=== PATIENT | female | born 1965 | race Caucasian/White ===

== ENCOUNTER 2019-02-08 14:41 | Emergency (ER) | payer OTHER ==
[~2019-02-08] VITALS: Ht 188 cm; Wt 77.1 kg
[2019-02-08] MEDS ORDERED: FETZIMA80 MG PO (15:28)
[2019-02-08] MEDS ORDERED: ZALEPLON 10 MG10 M1 PO (15:29)
[2019-02-08] MEDS ORDERED: SYNTHROID50 MCG PO (15:29)
[2019-02-08] MEDS ORDERED: DILAUDID2 MG PO (15:29)
[2019-02-08] MEDS ORDERED: FLEXERIL PO (15:30)
[2019-02-08] MEDS ORDERED: NORCO 10-325 T1 EACH PO (15:31)
[2019-02-08] MEDS ORDERED: SEROQUEL 25 MG25 MG PO (15:32)
[2019-02-08] MEDS ORDERED: REMERON 30 MG T30 MG PO (15:32)
[2019-02-08] MEDS ORDERED: FENOFIBRATE145 M1 PO (15:33)
[2019-02-08] MEDS ORDERED: ZYRTEC 10 MG TA10 MG PO (15:33)
[2019-02-08] MEDS ORDERED: SINGULAIR 10 MG10 M1 PO (15:34)
[2019-02-08] MEDS ORDERED: TRANSDERM-SCOP1 EACH TRANSDERM (15:34)
[2019-02-08] MEDS ORDERED: SENNA-DOCUSATE1 EAC1 PO (15:35)
[2019-02-08] MEDS ORDERED: QUETIAPINE FUM400 MG PO (15:36)
[2019-02-08] MEDS ORDERED: NARCAN4 MG NASAL (15:36)
[2019-02-08] MEDS ORDERED: VITAMIN D2000 UNIT PO (15:37)
[2019-02-08] MEDS ORDERED: VALACYCLOVIR HCL1 GM PO (15:38)
[2019-02-08] MEDS ORDERED: OMEPRAZOLE40 MG PO (15:39)
[2019-02-08] MEDS ORDERED: OXTELLAR XR300 MG PO (15:39)
[2019-02-08] MEDS ORDERED: VENTOLIN HFA 1818 GM INH (15:40)
[2019-02-08 16:12] LABS: BASOPHILS 0.8 % (0.0-2.0); EOSINOPHILS 0.4 % (0.0-3.0); HEMATOCRIT 35.3 % (37.0-47.0); HEMOGLOBIN 11.9 gm/dL (12.0-15.0); LYMPHOCYTES 19.7 % (24.0-44.0); MCH 29.5 pg (26.0-34.0); MCHC 33.7 g/dL (28.0-37.0); MCV 87.6 fL (80.0-100.0); PLATELET COUNT 335 thou/uL (150-400); POLYS 70.1 % (36.0-66.0); RBC 4.03 mil/uL (4.20-5.00); RDW 13.8 % (10.5-14.5)
[2019-02-08 16:21] LABS: ANION GAP 12 mmol/L (7-16); BUN 12 mg/dL (7-18); CALCIUM 9.5 mg/dL (8.5-10.1); CHLORIDE 106 mmol/L (98-107); CO2 22 mmol/L (21-32); GLUCOSE 115 mg/dL (74-106); POTASSIUM 3.5 mmol/L (3.5-5.1); SODIUM 140 mmol/L (136-145)
[2019-02-08 16:28] LABS: ALBUMIN 3.5 g/dL (3.4-5.0); SALICYLATE < 2.8 mg/dL (2.8-20.0); SGOT 20 U/L (15-37); SGPT 23 U/L (30-65); TOTAL BILIRUBIN 0.2 mg/dL (<0.1-1.0); TOTAL PROTEIN 7.2 g/dL (6.4-8.2)
[2019-02-08 16:46] LABS: URINE BILIRUBIN NEGATIVE (Negative); URINE BLOOD TRACE (Negative); URINE COLOR YELLOW; URINE GLUCOSE-RANDOM* NEGATIVE (Negative); URINE KETONES NEGATIVE (Negative); URINE LEUKOCYTES 2+ (Negative); URINE NITRITE POSITIVE (Negative); URINE PROTEIN (DIPSTICK) NEGATIVE (Negative); URINE SPECIFIC GRAVITY 1.015 (1.005-1.035); URINE UROBILINOGEN 0.2 E.U./dl (0.2-1.0)
[2019-02-08 16:48] LABS: URINE CLARITY CLOUDY
[2019-02-08 17:07] LABS: SQUAMOUS >10 Many /LPF (0-3)
[2019-02-08 17:09] LABS: AMP/METHAMP Negative (Negative); BACTERIA >30 Many /HPF (None Seen); BARBITURATES Negative (Negative); BENZODIAZEPINES Negative (Negative); CASTS None Seen /LPF (None Seen); COCAINE Negative (Negative); CRYSTALS None Seen /LPF (None Seen); METHADONE Negative (Negative); OPIATES Negative (Negative); PCP Negative (Negative); URINE RBC 0-2 Rare /HPF (0-2); URINE WBC 6-15 Few /HPF (0-5)
[2019-02-08] MEDS ORDERED: HYDROCODONE-AP1 EAC6 PO (19:58)
[2019-02-08 20:12] VITALS: BP 149/96
== END 2019-02-08 20:22 | disposition home or self-care (01) ==
LOC: ER 14:41
PROVIDERS: Physician Assistant
DX: G89.29 Other chronic pain (principal); F32.9 Major depressive disorder, single episode, unspecified; N39.0 Urinary tract infection, site not specified; E03.9 Hypothyroidism, unspecified; G47.00 Insomnia, unspecified; F41.9 Anxiety disorder, unspecified; Z85.830 Personal history of malignant neoplasm of bone; Z96.641 Presence of right artificial hip joint; Z88.0 Allergy status to penicillin; Z88.1 Allergy status to other antibiotic agents; Z88.8 Allergy status to other drugs, medicaments and biological substances; Z79.899 Other long term (current) drug therapy

== ENCOUNTER 2019-06-06 11:00 | Emergency (ER) | payer OTHER ==
[~2019-06-06] VITALS: Ht 185.4 cm; Wt 61.2 kg
[2019-06-06 11:00] VITALS: BP 144/93
[~2019-06-06 11:00] MED LIST: DILAUDID2 MG PO; FENOFIBRATE145 M1 PO; FETZIMA80 MG PO; FLEXERIL PO; HYDROCODONE-AP1 EAC6 PO; NARCAN4 MG NASAL; NORCO 10-325 T1 EACH PO; OMEPRAZOLE40 MG PO; OXTELLAR XR300 MG PO; QUETIAPINE FUM400 MG PO; REMERON 30 MG T30 MG PO; SENNA-DOCUSATE1 EAC1 PO; SEROQUEL 25 MG25 MG PO; SINGULAIR 10 MG10 M1 PO; SYNTHROID50 MCG PO; TRANSDERM-SCOP1 EACH TRANSDERM; VALACYCLOVIR HCL1 GM PO; VENTOLIN HFA 1818 GM INH; VITAMIN D2000 UNIT PO; ZALEPLON 10 MG10 M1 PO; ZYRTEC 10 MG TA10 MG PO
[2019-06-06] MEDS ORDERED: IBUPROFEN 600600 M1 PO (11:58)
== END 2019-06-06 12:05 | disposition home or self-care (01) ==
LOC: ER 11:00
DX: S60.212A Contusion of left wrist, initial encounter (principal); F41.9 Anxiety disorder, unspecified; F32.9 Major depressive disorder, single episode, unspecified; G47.00 Insomnia, unspecified; Z85.830 Personal history of malignant neoplasm of bone; Z96.641 Presence of right artificial hip joint; Z88.2 Allergy status to sulfonamides; Z88.0 Allergy status to penicillin; Z88.8 Allergy status to other drugs, medicaments and biological substances; W18.39XA Other fall on same level, initial encounter; Y93.89 Activity, other specified; Y92.810 Car as the place of occurrence of the external cause; Y99.8 Other external cause status

== ENCOUNTER 2020-08-15 18:14 | Emergency (ER) | payer OTHER ==
[~2020-08-15] VITALS: Ht 185.4 cm; Wt 68.0 kg
[~2020-08-15 18:14] MED LIST changes: +IBUPROFEN 600600 M1 PO
[2020-08-15 20:22] VITALS: BP 132/81
[2020-08-15] MEDS ORDERED: NAPROSYN500 MG PO (22:52)
== END 2020-08-15 23:05 | disposition home or self-care (01) ==
LOC: ER 18:14
DX: S01.511A Laceration without foreign body of lip, initial encounter (principal); Z79.899 Other long term (current) drug therapy; Z88.0 Allergy status to penicillin; Z88.2 Allergy status to sulfonamides; Z88.8 Allergy status to other drugs, medicaments and biological substances; W26.8XXA Contact with other sharp object(s), not elsewhere classified, initial encounter; Y93.89 Activity, other specified; Y92.89 Other specified places as the place of occurrence of the external cause; Y99.8 Other external cause status

== ENCOUNTER 2020-12-18 11:59 | Emergency (ER) | payer OTHER ==
[~2020-12-18] VITALS: Ht 185.4 cm; Wt 68.0 kg
[~2020-12-18 11:59] MED LIST changes: +NAPROSYN500 MG PO
[2020-12-18 12:43] LABS: HEMOGLOBIN 13.2 gm/dL (12.0-15.0); MCH 29.5 pg (26.0-34.0); MCHC 33.7 g/dL (28.0-37.0); MCV 87.4 fL (80.0-100.0); RBC 4.47 mil/uL (4.20-5.00); RDW 12.7 % (10.5-14.5); WBC 8.4 thou/uL (4.0-11.0)
[2020-12-18 12:51] LABS: CALCIUM 9.2 mg/dL (8.5-10.1); CREATININE 0.9 mg/dL (0.6-1.0)
[2020-12-18 12:57] LABS: ALBUMIN 3.8 g/dL (3.4-5.0); TOTAL BILIRUBIN 0.6 mg/dL (0.2-1.0); TOTAL PROTEIN 7.7 g/dL (6.4-8.2)
[2020-12-18] MEDS ORDERED: CLEOCIN HCL150 MG PO (14:12)
[2020-12-18] MEDS ORDERED: CLEOCIN HCL300 MG PO (14:12)
[2020-12-18 14:18] VITALS: BP 147/89
== END 2020-12-18 14:18 | disposition home or self-care (01) ==
LOC: ER 11:59
PROVIDERS: Nurse Practitioner Family
DX: L03.213 Periorbital cellulitis (principal); Z79.1 Long term (current) use of non-steroidal anti-inflammatories (NSAID); Z79.899 Other long term (current) drug therapy; Z88.0 Allergy status to penicillin; Z88.2 Allergy status to sulfonamides; Z88.8 Allergy status to other drugs, medicaments and biological substances

== ENCOUNTER 2021-02-27 16:54 | Emergency (ER) | payer OTHER ==
[~2021-02-27] VITALS: Ht 185.4 cm; Wt 65.3 kg
[~2021-02-27 16:54] MED LIST changes: +CLEOCIN HCL150 MG PO; +CLEOCIN HCL300 MG PO
[2021-02-27] MEDS ORDERED: DIFLUCAN150 M1 PO (19:45)
[2021-02-27] MEDS ORDERED: DOXYCYCLINE 10100 MG PO (19:45)
[2021-02-27 19:50] VITALS: BP 153/82
[2021-03-01 21:06] LABS: SYPHILIS AB Non Reactive (Non Reactive)
== END 2021-02-27 19:50 | disposition home or self-care (01) ==
LOC: ER 16:54
PROVIDERS: Nurse Practitioner Family
DX: S80.262A Insect bite (nonvenomous), left knee, initial encounter (principal); S30.861A Insect bite (nonvenomous) of abdominal wall, initial encounter; S20.462A Insect bite (nonvenomous) of left back wall of thorax, initial encounter; S20.461A Insect bite (nonvenomous) of right back wall of thorax, initial encounter; B37.3 Candidiasis of vulva and vagina; Z20.2 Contact with and (suspected) exposure to infections with a predominantly sexual mode of transmission; F41.9 Anxiety disorder, unspecified; F32.9 Major depressive disorder, single episode, unspecified; Z96.641 Presence of right artificial hip joint; Z85.830 Personal history of malignant neoplasm of bone; Z79.899 Other long term (current) drug therapy; Z79.2 Long term (current) use of antibiotics; Z88.8 Allergy status to other drugs, medicaments and biological substances; Z88.0 Allergy status to penicillin; Z88.2 Allergy status to sulfonamides; W57.XXXA Bitten or stung by nonvenomous insect and other nonvenomous arthropods, initial encounter; Y93.89 Activity, other specified; Y92.89 Other specified places as the place of occurrence of the external cause; Y99.8 Other external cause status

== ENCOUNTER 2021-09-20 14:02 | Emergency (ER) | payer OTHER ==
[~2021-09-20] VITALS: Ht 188 cm; Wt 68.0 kg
[~2021-09-20 14:02] MED LIST changes: +DIFLUCAN150 M1 PO; +DOXYCYCLINE 10100 MG PO
[2021-09-20 16:52] VITALS: BP 152/89
== END 2021-09-20 18:46 | disposition home or self-care (01) ==
LOC: ER 14:02
DX: U07.1 COVID-19 (principal); Z88.0 Allergy status to penicillin; Z88.1 Allergy status to other antibiotic agents; Z79.899 Other long term (current) drug therapy